=== PATIENT | female | born 1950 | race Two or more races ===

== ENCOUNTER 2022-08-13 07:00 | Day surgery (SDC) | payer OTHER | END 2022-08-13 17:30 | disposition home or self-care (01) | LOC: CIR.AMB 07:00 | PROVIDERS: ATTEND Surgery | DX: C50.411 Malignant neoplasm of upper-outer quadrant of right female breast (principal); R59.0 Localized enlarged lymph nodes; E03.9 Hypothyroidism, unspecified; Z88.2 Allergy status to sulfonamides; Z20.822 Contact with and (suspected) exposure to COVID-19 | CPT/HCPCS: 19301; 38525; 19081; A9541 ==

== ENCOUNTER → 2025-07-06 | Emergency (ER) | payer OTHER ==
[~2025-07-06] VITALS: Ht 165.1 cm; Wt 49.9 kg
[~2025-07-06] MED LIST: 8HR ARTHRITIS650 M1 PO; ACETAMINOPHEN 500 MG GEL..CAP PO ONE; ACETAMINOPHEN 500 MG GEL..CAP PO STA; DEXAMETHASONE SODIUM PHOSPHATE 4 MG/ML VIAL IM STA; DEXAMETHASONE SODIUM PHOSPHATE 4 MG/ML VIAL ONE; DIPHENHYDRAMINE HCL 50 MG/ML VIAL 1ML IM STA; FAMOTIDINE/PF 20 MG/2 ML VIAL IV STA; FAMOTIDINE/PF 20 MG/2 ML VIAL ONE; METOCLOPRAMIDE HCL 5 MG/ML VIAL IM STA; METOCLOPRAMIDE HCL 5 MG/ML VIAL ONE; ZESTRIL2.5 MG PO
[2025-07-06 05:51] VITALS: BP 138/90; O2SAT 98
[2025-07-06 08:38] LABS: BASO % 0.7 % (0.1-1.2); EOS # 0.13 (0.04-0.54); EOS % 2.1 % (0.7-7.0); LYMPH # 1.62 (1.18-3.74); LYMPH % 26.5 % (19.3-53.1); MEAN PLATELET VOLUME 10.50 fl (9.4-12.4); MONO # 0.36 (0.24-0.82); MONO % 5.9 % (4.7-12.5); NEUT # 3.95 (1.56-6.13); NEUT % 64.6 % (34.0-71.1); RED CELL DISTRIBUTION WIDTH 14.0 % (11.6-14.4)
[2025-07-06 09:09] LABS: BUN CREA RATIO 17.0 (7.0-25.0); CREATININE SERUM 0.76 mg/dL (0.55-1.02); GFR 73.79; GLUCOSE FASTING 137.0 mg/dL (65-100); OSMOLALITY SERUM 287.0 MOSM/KG (275-295)
[2025-07-06 09:15] LABS: URINE APPEARANCE Clear; URINE BILIRRUBIN Negative (NEGATIVE); URINE BLOOD Trace; URINE COLOR Yellow; URINE GLUCOSE Negative (NEGATIVE); URINE KETONE Negative (NEGATIVE); URINE LEUKOCYTE Negative; URINE NITRATE Negative; URINE PROTEIN Negative (NEGATIVE); URINE UROBILINOGEN 0.2 E.U./dl
[2025-07-06 09:25] LABS: URINE RBC 2.9 uL (0.0-20.8)
[2025-07-06 09:31] LABS: URINE BACTERIA 1.1 uL (0.0-1933); URINE CAST 0.14 uL (0.0-1.40); URINE EPITHELIAL CELLS 1.2 uL (0.0-38.8); URINE WBC 0.3 uL (0.0-23.2)
== END | disposition home or self-care (01) ==
LOC: ER 05:37
PROVIDERS: General Practice
DX: R51.9 Headache, unspecified (principal); Z88.2 Allergy status to sulfonamides; M19.90 Unspecified osteoarthritis, unspecified site; M81.8 Other osteoporosis without current pathological fracture; R10.13 Epigastric pain